=== PATIENT | female | born 1950 | race Caucasian/White ===

== ENCOUNTER 2023-04-09 12:37 | Outpatient (CLI) | payer MEDICARE, OTHER, SELFPAY ==
[2023-04-09 12:46] LABS: Add Urine Microscopic? NO; Charge for UA Resulting for Rev
[2023-04-09 12:50] LABS: Bilirubin Urine Neg (Negative); Blood Urine Neg (Negative); Glucose Urine UA Norm (Normal); Ketones Urine Negative (Negative); Leukocyte Esterase Urine Negative (Negative); Nitrate Urine Negative (Negative); Protein Urine Neg (Negative); Urine Appearance Clear (CLEAR); Urine Color Yellow (Yellow); Urobilinogen Urine Neg (Negative); pH Urine 6 (5-7)
== END 2023-04-09 12:38 | disposition home or self-care (01) ==
PROVIDERS: PCP Family Medicine; Visit Provider Family Medicine
DX: Z01.89 Encounter for other specified special examinations (principal)
CPT/HCPCS: 81003; 87086

== ENCOUNTER 2023-09-23 13:51 | Outpatient (CLI) | payer MEDICARE, OTHER, SELFPAY ==
[2023-09-23 15:22] LABS: Add Urine Microscopic? YES; Bacteria Urine 2+ /hpf; Bilirubin Urine Neg (Negative); Blood Urine Trace (Negative); Calcium Oxalate Crystals Urine 0-4 /hpf; Glucose Urine UA Norm (Normal); Ketones Urine Negative (Negative); Leukocyte Esterase Urine 2+ (Negative); Mucus Urine 1+ /hpf; Nitrate Urine Negative (Negative); Protein Urine Neg (Negative); RBC Urine 0-4 /hpf (0-2); Squamous Epithelial Cell Urine 0-4 /hpf (0-5); Urine Appearance Cloudy (CLEAR); Urine Color Yellow (Yellow); Urobilinogen Urine Norm (Negative); WBC Urine 15-25 /hpf (0-5); pH Urine 5 (5-7)
[2023-09-23 15:23] LABS: Add Urine Culture? Yes; Amorphous Sediment Urine 1+ /hpf
== END 2023-09-23 13:52 | disposition home or self-care (01) ==
PROVIDERS: PCP Family Medicine; Visit Provider Family Medicine
DX: Z01.89 Encounter for other specified special examinations (principal)
CPT/HCPCS: 81001; 87077; 87086; 87186

== ENCOUNTER 2024-02-10 10:46 | Inpatient (IN) | payer MEDICARE, OTHER, SELFPAY ==
[2024-02-10] VITALS (9 sets, daily range): BP systolic 134–194; BP diastolic 65–104; PULSE 78–96; RESP 16–18; TEMP 36.4–37.3; O2SAT 95–97; BMI 25.8
--- NOTE | 2024-02-10 10:51 | XR_ITS ---
WS: [id number] Right femur and thigh, AP and lateral views, 02/10/2024 Clinical Data: fall Comparison: None. Findings: There is a right femoral neck fracture. The femoral head remains within the acetabulum. The shaft of the femur is normal. The visualized right knee shows no abnormalities. XR/XR femur RT min 2V* [id number] Impression: Right femoral neck fracture.
--- NOTE | 2024-02-10 10:51 | XR_ITS ---
WS: [id number] Pelvis, AP right hip, 02/10/2024 Clinical Data: fall Comparison: None. Findings: There is a right femoral neck fracture. The femoral head remains within the acetabulum. The left hip is intact. Pubic symphysis and SI joints are normal. No pelvic fractures are seen. XR/XR pelvis 1-2V* [id number] Impression: Right femoral neck fracture.
--- NOTE | 2024-02-10 10:52 | W.ED.FALL ---
HPI - Fall General: Chief Complaint: Fall Stated Complaint: fall, hip pain Time Seen by Provider: 02/10/24 10:47 Source: EMS Mode of arrival: EMS Limitations: other (dementia) History of Present Illness: Patient was transported from long-term care facility. Apparently approximately 6:30 AM residence in the adjoining room her to fall and she was noted to be on the floor. Staff then were able to place her in a wheelchair but she has continued to refuse to ambulate complaining of pain in her right leg. She has longstanding dementia which limits any additional history taking. No other known injuries and she does not take any known antiplatelets or anticoagulant medications. MD complaint: fall Fall witnessed: no Related Data Home Medications Medication Instructions Recorded Confirmed acetaminophen 325 mg tablet 650 mg PO QID PRN Pain 02/10/24 02/10/24 melatonin 10 mg capsule 10 mg PO DAILY 02/10/24 02/10/24 memantine 5 mg tablet 5 mg PO DAILY 02/10/24 02/10/24 olanzapine 2.5 mg tablet 2.5 mg PO DAILY 02/10/24 02/10/24 sertraline 25 mg tablet 25 mg PO DAILY 02/10/24 02/10/24 Previous Rx's Medication Instructions Recorded trazodone 50 mg tablet 50 mg PO DAILY #30 tabs 07/02/22 lorazepam 0.5 mg tablet 0.5 mg PO BID PRN anxiety #60 tabs 08/31/23 Allergies Allergy/AdvReac Type Severity Reaction Status Date / Time No Known Allergies Allergy Verified 12/23/23 09:01 Review of Systems General: Reports: Other (Chronic dementia limits review of systems) Const: Denies: fever(s) or chills Musc: Reports: extremity pain Physical Exam Narrative: EXAM NARRATIVE: She appears to be uncomfortable when transferred from EMS stretcher to cot. She is alert and responds to her name. No obvious signs of trauma. Const: COMMON NORMALS: average body habitus and alert ORIENTATION/CONSCIOUSNESS: Yes awake HENMT: COMMON NORMALS: Normal nasal mucous membranes and turbinates present, moist oral mucous membranes and oropharynx normal NOSE: Normal nasal mucous membranes and turbinates present Eye: COMMON NORMALS: Equal, round and reactive pupils present and conjunctivae normal CONJUNCTIVA: Yes conjunctivae normal PUPIL: Yes Equal, round and reactive pupils present Neck/C-Spine: COMMON NORMALS: full ROM and supple Chest: COMMONS NORMALS: normal inspection of the chest and normal palpation of entire chest wall Resp: COMMON NORMALS: normal respiratory effort and No retractions Cardio: COMMON NORMALS: regular rate, regular rhythm, No murmurs present (Cardio) and Peripheral pulses 2+ throughout RATE: regular rate RHYTHM: regular rhythm PERIPHERAL PULSES: Peripheral pulses 2+ throughout GI: COMMON NORMALS: Normal to inspection, nondistended, normoactive bowel sounds present, Soft to palpation and non-tender PALPATION: Yes Soft to palpation : COMMON NORMALS: Yes no CVA tenderness BLADDER/KIDNEY EXAM: Yes no CVA tenderness Back/Pelvis: COMMON NORMALS: no CVA tenderness and thoracic and lumbar spine normal to inspection Extremity: NARRATIVE EXTREMITY EXAM: Has tenderness in her medial portion of her right upper leg with restriction in range of motion due to pain. No obvious deformity noted. She is has intact peripheral pulses and intact sensation to that distal right extremity. The pelvis is stable to AP and lateral compression. Neuro: COMMON NORMALS: moves all extremities (With exception the right lower extremity) and no focal motor deficits SENSORIUM/ORIENTATION: Yes alert Skin: COMMON NORMALS: no rashes or lesions noted, no wounds and turgor normal GENERAL SKIN EXAM: no rashes or lesions noted and turgor normal Course Reevaluation(s): Reevaluation #1: Repeat evaluation is negative for any new or otherwise changing findings and her clinical examination other than the right lower extremity discomfort and pain. Radiographs were reviewed. Time: 12:39 Consultations: Consultation #1: Discussed with Dr. Negron orthopedic information systems consultant who will plan on taking her to surgery tomorrow for hemiarthroplasty. He request admission to the hospitalist service with n.p.rory steward. Time: 12:40 Vital Signs: Vital signs: Vital Signs Temperature 98.1 F 02/10/24 11:03 Pulse Rate 78 02/10/24 11:45 Respiratory Rate 18 02/10/24 11:37 Blood Pressure 138/104 02/10/24 11:45 Pulse Oximetry 97 02/10/24 11:45 Oxygen Delivery Me thod Room Air 02/10/24 11:45 MDM - Fall Medical Decision Making This patient presented as noted in the history of present illness with limited history due to her dementia of having a fall. Her clinical exam did not reveal any evidence of other injury. She did have demonstrable tenderness with attempts of range of motion at the right hip. Radiographs of the hip and pelvis were obtained which revealed a surgical neck fracture. She is being admitted to hospitalist service with orthopedic consultation. Lab Data I reviewed the patient's lab results. Radiology Impressions Femur X-Ray 02/10/24 10:51 Impression: Right femoral neck fracture. Pelvis X-Ray 02/10/24 10:51 Impression: Right femoral neck fracture. All radiology interpretation(s) finalized by discharge Discharge Plan Discharge Patient Disposition: Admitted As Inpatient Clinical Impression: Fracture of hip, right, closed Qualifiers: Encounter type: initial encounter Qualified Code(s): S72.001A - Fracture of unspecified part of neck of right femur, initial encounter for closed fracture Alzheimer's dementia Qualifiers: Alzheimer's disease onset: late onset Dementia severity: moderate Dementia behavioral or psychological symptom: without behavioral, psychotic, or mood disturbance or anxiety Qualified Code(s): G30.1 - Alzheimer's disease with late onset Condition: Stable Coding Level of Care Code ED Quality Auditor for Ry Bailey
[2024-02-10] MEDS: morphine 4 mg/mL SDV 1 mL IVP (12:55)
[2024-02-10 13:27] LABS: Bilirubin Urine Negative (Negative); Blood Urine Negative (Negative); Glucose Urine UA Negative (Normal); Ketones Urine 1+ (Negative); Leukocyte Esterase Urine Negative (Negative); Nitrate Urine Positive (Negative); Protein Urine Trace (Negative); Specific Gravity, Urine 1.012 (1.005-1.030); Urine Appearance Cloudy (CLEAR); Urine Color Yellow (Yellow); pH Urine 7.5 (5-7)
[2024-02-10 13:30] LABS: Add Urine Microscopic? YES; Bacteria Urine EXCEEDS /hpf; Hyaline Casts Urine 2.46 /lpf; RBC Urine 0-2 /hpf (0-2); Squamous Epithelial Cell Urine 0-5 /hpf (0-5); WBC Urine 0-5 /hpf (0-5)
--- NOTE | 2024-02-10 13:35 | CT_ITS ---
WS: [id number] CT HEAD NONCONTRAST HISTORY: AMS TECHNIQUE: Contiguous axial imaging performed through the brain. Bone and soft tissue windows. Sagitt al and coronal reformats reviewed. All CT scans at [facility] use at least one of these dose optimization techniques: automated exposure control; mA and/or kV adjustment per patient size (includ es targeted exams where dose is matched to clinical indication); or iterative reconstruction. DLP: 1303.38 mGy.cm COMPARISON: None available. No acute intracranial hemorrhage, midline shift or mass effect. Moderate symmetric atrophy and small vessel disease. 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 Ventricles: Mildly dilated ventricles on the basis of atrophy. Paranasal sinuses: As visualized are clear. Mastoid air cells: Well pneumatized. Calvarium and scalp: Skull is intact with no soft tissue edema or swelling. CT/CT head wo con* [id number] IMPRESSION: 1. No acute intracranial hemorrhage or edema. 2. Moderate atrophy and small vessel disease. 3. Prior LEFT temporal lobe infarct with encephalomalacia.
[2024-02-10 13:38] LABS: Add Urine Culture? Yes
--- NOTE | 2024-02-10 13:59 | P.HP_ITS ---
Providers/Chief Complaint 2 Admitting Physician: Mk Aguilar MD Primary Care Provider: Sonny Robbins DO Chief Complaint: fall, hip pain History of Present Illness Francie Shane is a 73 year old female with history of dementia, no significant past medical history, resident of [facility] presented after unwitnessed falls. We are not sure for how long she was on the floor, in the ER she was diagnosed with hip fracture, daughter was concerned that she is not at her baseline requested CT head which was unremarkable After my interview patient seems very comfortable, she has expressive aphasia which as per the daughter is old, she has cognitive impairment, normally walks on her own without any assistance She normally answers in simple 3-4 word sentences No recent fever, hard to assess if she is experiencing signs and symptoms of UTI. Review of Systems 2 General: Reports: ROS unobtainable due to medical condition Const: Denies: fever(s) Eyes: Denies: change in vision Medications/Allergies Home Medications Medication Instructions Recorded Confirmed Last Taken Type trazodone 50 mg tablet 50 mg PO DAILY #30 tabs 07/02/22 02/10/24 02/09/24 Rx lorazepam 0.5 mg tablet 0.5 mg PO BID PRN anxiety #60 tabs 08/31/23 02/10/24 02/09/24 Rx acetaminophen 325 mg tablet 650 mg PO QID PRN Pain 02/10/24 02/10/24 Unknown History melatonin 10 mg capsule 10 mg PO DAILY 02/10/24 02/10/24 02/09/24 History memantine 5 mg tablet 5 mg PO DAILY 02/10/24 02/10/24 02/10/24 History olanzapine 2.5 mg tablet 2.5 mg PO DAILY 02/10/24 02/10/24 02/09/24 History sertraline 25 mg tablet 25 mg PO DAILY 02/10/24 02/10/24 02/10/24 History Allergies Allergy/AdvReac Type Severity Reaction Status Date / Time No Known Allergies Allergy Verified 12/23/23 09:01 PFSH Acute 2 PFSH: Medical History (Updated 02/10/24 @ 14:50 by Mk Aguilar MD) Expressive aphasia Insomnia Depression with anxiety Essential hypertension Lives in assisted living facility Establishing care with new doctor, encounter for Vitals/I&O/Wt Last Vital Signs Temp 98.1 F 02/10/24 11:03 Pulse 87 02/10/24 13:55 Resp 18 02/10/24 12:55 BP 184/97 02/10/24 13:55 Pulse Ox 95 02/10/24 13:55 O2 Del Method Room Air 02/10/24 13:16 Weight last 48 hrs Weight 72.575 kg Physical Exam 2 Narrative: Patient is awake and alert Able to answer simple questions I do not see any focal deficit Right leg is rotated outwards and short No neurovascular compromise Lung clear to auscultation S1, S2 Abdomen with positive bowel sounds Urinary Catheter Management: Guillaume: Cath Placed During This Visit: yes Urinary Catheter Date of Insertion: 02/10/24 Urinary Catheter Time of Insertion: 13:18 Data 02/10/24 13:43 02/10/24 13:43 A&P Assessment and plan (1) Fracture of hip, right, closed: Qualifiers: Encounter type: initial encounter Qualified Code(s): S72.001A - Fracture of unspecified part of neck of right femur, initial encounter for closed fracture (2) Alzheimer's dementia: Qualifiers: Alzheimer's disease onset: late onset Dementia severity: moderate D ementia behavioral or psychological symptom: without behavioral, psychotic, or mood disturbance or anxiety Qualified Code(s): G30.1 - Alzheimer's disease with late onset; F02.B0 - Dementia in other diseases classified elsewhere, moderate, without behavioral disturbance, psychotic disturbance, mood disturbance, and anxiety (3) Expressive aphasia: Plan Unwitnessed fall Going for hip surgery by tomorrow Not on any anticoagulating agent Patient has underlying dementia Daughter and son has medical DPOA, she is full code for now Guillaume catheter has been placed in the ER For hypertension can use hydralazine on as-needed basis, avoid lisinopril Patient seems to have chronic expressive aphasia with underlying dementia DVT prophylaxis: SCDs Cloudy urine: I will give her a dose of ceftriaxone Currently doing well on room air Patient not a good historian, information taken from the daughter who is at the bedside Patient will need half-way placement for rehab Attestations 2 Medical Necessity Statement*: Anticipating more than 2 midnights Diagnoses Fracture of hip, right, closed S72.001A Encounter type: initial encounter Moderate late onset Alzheimer's dementia without behavioral disturbance, psychotic disturbance, mood disturbance, or anxiety G30.1; F02.B0 Alzheimer's disease onset: late onset Dementia severity: moderate Dementia behavioral or psychological symptom: without behavioral, psychotic, or mood disturbance or anxiety Expressive aphasia R47.01
[2024-02-10 14:03] LABS: Basophils % 0.1 %; Eosinophils % 0.1 %; Hematocrit 40.1 % (36-47); Lymphocytes # 0.4 10^3/uL (0.8-4.8); Mean Corpuscular HGB Conc 32.9 g/dL (30-55); Mean Corpuscular Hemoglobin 30.8 pg (27-33); Mean Corpuscular Volume 93.5 fl (85-98); Mean Platelet Volume 9.8 fL (7.4-10.4); Monocytes # 0.6 10^3/uL (0.2-0.9); Monocytes % 4.4 %; Neutrophils # 13.07 10^3/uL (1.8-7.7); Nucleated Red Blood Cells % 0 %; Platelet Count 156 10^3/cmm (157-399); Red Blood Count 4.29 10^6/uL (3.85-5.65); Red Cell Distribution Width 11.6 % (12.1-15.1); White Blood Count 14.21 10^3/uL (3.29-11.43)
[2024-02-10 14:32] LABS: Alanine Aminotransferase 21 U/L (0-33); Albumin Level 4.1 g/dL (3.5-5.2); Alkaline Phosphatase 82 U/L (35-105); Aspartate Amino Transferase 23 U/L (0-32); Blood Urea Nitrogen 17 mg/dL (8-23); Calcium 8.9 mg/dL (8.5-10.5); Carbon Dioxide 27 mmol/L (22-29); Chloride 101 mmol/L (98-107); Globulin 2.9 g/dL (1.3-4.6); Glucose 125 mg/dL (65-115); Osmolality Calculated 289 mOsm/kg (285-295); Sodium 138 mmol/L (136-145); Total Bilirubin 0.6 mg/dL (0.15-1.2)
[2024-02-10 14:35] LABS: Anion Gap 13.3 (5-19); Potassium 3.3 mmol/L (3.5-5.1)
[2024-02-10 15:08] LABS: Thyroid Stimulating Hormone 1.19 uIU/mL (0.27-4.20); Vitamin B12 1023 pg/mL (232-1245)
[2024-02-10 15:11] LABS: D Dimer > 20.00 ug/mLFEU (0-0.59)
[2024-02-10 15:21] LABS: Creatine Phosphokinase 113 U/L (26-192)
[2024-02-10] MEDS: enoxaparin 40 mg/0.4 mL Syringe SUBCUT (16:27)
[2024-02-10] MEDS: hyDRALAzine 20 mg/mL INJ 1 mL 5 MG IVP (16:28)
--- NOTE | 2024-02-10 16:51 | USR_ITS ---
PROCEDURE INFORMATION: Exam: US Duplex Lower Extremity Veins, Bilateral Exam date and time: 02/10/2024 5:42 PM Age: 73 years old Clinical indication: Screening exam; Elevated d-dimer; Additional info: Elevated d dimer TECHNIQUE: Imaging protocol: Real-time duplex ultrasound of the bilateral extremities with 2-D ochn scale, color Doppler flow and spectral waveform analysis including responses to compression and other maneuvers (when performed) with image documentation. Complete exam focused on the lower extremity veins. COMPARISON: CR XR femur RT min 2V* [id number] 02/10/2024 11:36 AM FINDINGS: Right deep veins: Unremarkable. The common femoral, femoral, proximal profunda femoral, popliteal, posterior tibial and peroneal veins are patent without thrombus. Normal Doppler waveforms. Normal compressibility and/or augmentation response. Left deep veins: Unremarkable. The common femoral, femoral, proximal profunda femoral, popliteal, posterior tibial and peroneal veins are patent without thrombus. Normal Doppler waveforms. Normal compressibility and/or augmentation response. Superficial veins: Greater saphenous veins at the saphenofemoral junctions are patent bilaterally without thrombus. Soft tissues: Unremarkable. US/[place] [id number] IMPRESSION: No sonographic evidence of deep venous thrombosis.
--- NOTE | 2024-02-10 16:52 | CTR_ITS ---
PROCEDURE INFORMATION: Exam: CTA Chest With Contrast Exam date and time: 02/11/2024 1:03 AM Age: 73 years old Clinical indication: Other: Elevated d dimer TECHNIQUE: Imaging protocol: Computed tomographic angiography of the chest with contrast. Exam focused on the arteries. 3D rendering (Not supervised by radiologist): MIP and/or 3D reconstructed images were created by the technologist. Radiation optimization: All CT scans at this facility use at least one of these dose optimization techniques: automated exposure control; mA and/or kV adjustment per patient size (includes targeted exams where dose is matched to clinical indication); or iterative reconstruction. Contrast material: OMNI 350; Contrast volume: 100 ml; Contrast route: INTRAVENOUS (IV); COMPARISON: No relevant prior studies available. RADIATION DOSE METRICS: Total DLP (mGy-cm): 787.2 FINDINGS: Pulmonary arteries: Normal. No pulmonary emboli. Aorta: Mild aortic atherosclerosis. Lungs: Mild bibasilar atelectasis. Pleural spaces: Unremarkable. No pneumothorax. No pleural effusion. Heart: Aortic and mitral valve calcifications. Lymph nodes: Unremarkable. No enlarged lymph nodes. Bones/joints: Unremarkable. No acute fracture. Soft tissues: Unremarkable. CT/CT angio chest PE protcl [id number] IMPRESSION: No pulmonary embolus.
[2024-02-10] MEDS: metoprolol tartrate 25 mg Tablet PO (20:10)
[2024-02-10] MEDS: OLANZapine 5 mg TABLET 2.5 MG PO (20:11)
--- NOTE | 2024-02-10 23:03 | P.CONIM_ITS ---
Providers/Reason For Consult 2 Consulting Physician/Specialty*: Flakito Negron DO Reason for Consult*: Right hip femoral neck fracture Requesting Physician: Dr. Madden Attending Physician: Mk Aguilar MD Primary Care Provider: Sonny Robbins DO History of Present Illness History of Present Illness Francie Shane is a 73 year old female presented emergency department after unwitnessed fall landing onto the right hip. Patient has dementia unable to obtain HPI from patient but daughter is at bedside patient has history of dementia and is a resident at [facility]. She has deformity to right lower extremity. She is brought to emergency department found to have a right femoral neck fracture internal medicine is admitted patient is primary and orthopedics was consulted for evaluation and treatment recommendations. Baseline according to daughter she does ambulate normally on her own without any assistance. Review of Systems 2 General: Reports: ROS unobtainable due to mental status Medications/Allergies Home Medications Medication Instructions Recorded Confirmed Last Taken Type trazodone 50 mg tablet 50 mg PO DAILY #30 tabs 07/02/22 02/10/24 02/09/24 Rx lorazepam 0.5 mg tablet 0.5 mg PO BID PRN anxiety #60 tabs 08/31/23 02/10/24 02/09/24 Rx acetaminophen 325 mg tablet 650 mg PO QID PRN Pain 02/10/24 02/10/24 Unknown History melatonin 10 mg capsule 10 mg PO DAILY 02/10/24 02/10/24 02/09/24 History memantine 5 mg tablet 5 mg PO DAILY 02/10/24 02/10/24 02/10/24 History olanzapine 2.5 mg tablet 2.5 mg PO DAILY 02/10/24 02/10/24 02/09/24 History sertraline 25 mg tablet 25 mg PO DAILY 02/10/24 02/10/24 02/10/24 History Allergies Allergy/AdvReac Type Severity Reaction Status Date / Time No Known Allergies Allergy Verified 12/23/23 09:01 Current Medications Generic Name Dose Route Start Last Admin Trade Name Freq PRN Reason Stop Dose Admin Enoxaparin Sodium 40 mg 02/10/24 14:45 02/10/24 16:27 Enoxaparin 40 Mg/0.4 Ml Syringe SUBCUT 40 mg Q24H NINA Administration Hydralazine HCl 5 mg 02/10/24 14:16 02/10/24 16:28 Hydralazine 20 Mg/Ml Inj 1 Ml IVP 5 mg Q4H PRN Administration bp>180/100 Metoprolol Tartrate 25 mg 02/10/24 21:00 02/10/24 20:10 Metoprolol Tartrate 25 Mg Tablet PO 25 mg BID@0900,2100 NINA Administration Olanzapine 2.5 mg 02/10/24 21:00 02/10/24 20:11 Olanzapine 5 Mg Tablet PO 2.5 mg BEDTIME NINA Administration PFSH Acute 2 PFSH: Medical History (Updated 02/10/24 @ 14:50 by Mk Aguilar MD) Expressive aphasia Insomnia Depression with anxiety Essential hypertension Lives in assisted living facility Establishing care with new doctor, encounter for Vitals/I&O/Wt Last Vital Signs Temp 98.9 F 02/10/24 20:00 Pulse 96 02/10/24 20:00 Resp 17 02/10/24 20:00 BP 141/65 02/10/24 20:00 Pulse Ox 96 02/10/24 20:00 O2 Del Method Room Air 02/10/24 20:00 02/10/24 02/10/24 02/11/24 14:59 22:59 06:59 Intake Total 240 / 240 Output Total 1000 / 1000 Balance -760 / -760 Weight last 48 hrs Weight 160 lb Weight 160 lb Physical Exam 2 Narrative: Patient is able to follow simple exams Examination right lower extremity: Examination of the right lower extremity demonstrates patient has tenderness palpation of the right?hip?as well as the right lower extremity is shortened and externally rotated pt has positive logroll on?examination, unable to perform Stinchfield's secondary to pain and discomfort.? Patient is able to wiggle toes plantarflex and dorsiflex ankle sensations intact to light touch distally.? Distal pulses are palpable right lower extremity is warm and well-perfused.? Mild swelling noted about the right?hip.?? Secondary survey?examination unremarkable For any acute pathology to the bilateral upper extremities or contralateral lower extremity.? pt? has no tenderness to palpation to the bilateral upper extremities joints and no noticeable deformities.? ?gross motor and sensory is intact to the bilateral upper extremities.? Contralateral lower extremity has tenderness to the?hip?knee or ankle with no appreciable deformities and is able to plantarflex and dorsiflex ankle sensations intact to light touch distally as well as wiggle toes.? Distal pulses palpable.? Negative pelvic compression test, no tenderness palpation of the spine. Urinary Catheter Management: Guillaume: Cath Placed During This Visit: yes Reason for Continuing Indwelling Catheter: Perioperative Use in Selected Surgeries Urinary Catheter Date of Insertion: 02/10/24 Urinary Catheter Time of Insertion: 13:18 Data 02/11/24 04:20 02/11/24 04:20 Xray Ortho: Radiologist's impression: Ordering Provider/Ordering MD: Al Madden DO Date of Service: 02/10/24 Procedure(s): XR pelvis 1-2V* 91003 Accession Number(s): [id number] Report Number: [id number] WS: [id number] Pelvis, AP right hip, 02/10/2024 Clinical Data: fall Comparison: None. Findings: There is a right femoral neck fracture. The femoral head remains within the acetabulum. The left hip is intact. Pubic symphysis and SI joints are normal. No pelvic fractures are seen. XR/XR pelvis 1-2V* 32200 Impression: Right femoral neck fracture. Ordering Provider/Ordering MD: Al Madden DO Date of Service: 02/10/24 Procedure(s): XR femur RT min 2V* 39108 Accession Number(s): [id number] Report Number: [id number] WS: [id number] Right femur and thigh, AP and lateral views, 02/10/2024 Clinical Data: fall Comparison: None. Findings: There is a right femoral neck fracture. The femoral head remains within the acetabulum. The shaft of the femur is normal. The visualized right knee shows no abnormalities. XR/XR femur RT min 2V* [id number] Impression: Right femoral neck fracture. A&P Assessment and plan (1) Fracture of hip, right, closed: Qualifiers: Encounter type: initial encounter Qualified Code(s): S72.001A - Fracture of unspecified part of neck of right femur, initial encounter for closed fracture Plan X-rays reviewed Internal medicine as primary Orthopedics consulted Nonweightbearing right lower extremity Ice as needed for pain and swelling Pain control Hold a.m. anticoagulation May have a diet today, patient should be n.p.o. at midnight Add-on tomorrow for right hip hemiarthroplasty MDM: Patient is a 73-year-old female with dementia unable to obtain history from patient however her daughter is at bedside today. Patient had a unwitnessed fall and presented emergency department she is from a memory care unit at [facility] she does ambulate without a walker at baseline she presents with a displaced hip femoral neck fracture. At this point in time we talked about her treatment options with the patient's daughter. We talked about nonoperative and operative invention given the significant displacement as well as her baseline ambulation status would recommend surgical intervention for right hip hemiarthroplasty with goals for earlier mobilization and pain control we talked about the ins and outs of procedure the risk benefits complication alternatives with daughter. Risk of surgery include but not limited to make a better make it worse injury nerves vessels or tendons, leg length discrepancies, instability, infection, periprosthetic fractures. Understanding risk of surgery, patient's daughter elects to proceed with surgical intervention. Plan will be to proceed with a right hip hemiarthroplasty tomorrow. All questions answered. Coding Level of Care Code Acute Code for [facility] Fwd Diagnoses Fracture of hip, right, closed S72.001A Encounter type: initial encounter
[2024-02-11] VITALS (19 sets, daily range): BP systolic 121–206; BP diastolic 64–89; PULSE 69–99; RESP 13–24; TEMP 36.4–37.6; O2SAT 91–98
[2024-02-11] MEDS: iohexol 350 mg/mL 500 mL Btl (per mL) IV (01:27)
[2024-02-11] MEDS: morphine IR 15 mg Tablet PO ×3 (01:34→20:38)
[2024-02-11 04:53] LABS: Basophils % 0.1 %; Eosinophils # 0.1 10^3/uL (0.0-0.8); Eosinophils % 0.6 %; Hematocrit 36.6 % (36-47); Lymphocytes # 1.3 10^3/uL (0.8-4.8); Lymphocytes % 11.6 %; Mean Corpuscular HGB Conc 33.6 g/dL (30-55); Mean Corpuscular Volume 92.2 fl (85-98); Mean Platelet Volume 9.9 fL (7.4-10.4); Monocytes # 0.6 10^3/uL (0.2-0.9); Monocytes % 5.5 %; Neutrophils # 8.96 10^3/uL (1.8-7.7); Neutrophils % 81.7 %; Nucleated Red Blood Cells % 0 %; Platelet Count 160 10^3/cmm (157-399); Red Blood Count 3.97 10^6/uL (3.85-5.65); Red Cell Distribution Width 11.6 % (12.1-15.1); White Blood Count 10.96 10^3/uL (3.29-11.43)
[2024-02-11 05:19] LABS: Anion Gap 12.7 (5-19); Blood Urea Nitrogen 18 mg/dL (8-23); Calcium 8.7 mg/dL (8.5-10.5); Carbon Dioxide 27 mmol/L (22-29); Chloride 105 mmol/L (98-107); Glucose 127 mg/dL (65-115); Osmolality Calculated 295 mOsm/kg (285-295); Potassium 3.7 mmol/L (3.5-5.1); Sodium 141 mmol/L (136-145)
[2024-02-11] MEDS: metoprolol tartrate 25 mg Tablet PO ×2 (09:19→20:38)
--- NOTE | 2024-02-11 09:27 | P.PN_ITS ---
Subjective 2 Subjective: Patient suffered from sundowning, required medications to keep her calm Requiring one-to-one supervision Plan for surgery today Likely will need SNF Vitals/I&O/Wt Last Vital Signs Temp 98.2 F 02/11/24 07:30 Pulse 78 02/11/24 08:01 Resp 16 02/11/24 08:01 BP 160/72 02/11/24 07:30 Pulse Ox 94 02/11/24 08:01 O2 Del Method Room Air 02/11/24 08:01 02/10/24 02/11/24 02/11/24 22:59 06:59 14:59 Intake Total 240 / 240 Output Total 1250 / 1250 150 / 1400 Balance -1010 / -1010 -150 / -1160 Weight last 48 hrs Weight 70.534 kg Weight 72.575 kg Weight 72.575 kg Physical Exam 2 Narrative: Resting comfortably Patient is in deep sleep Currently hemodynamically stable with hypertension Currently on room air Abdomen soft Euvolemic Guillaume catheter in place Daughter at the bedside One-to-one supervision Urinary Catheter Management: Guillaume: Cath Placed During This Visit: yes Reason for Continuing Indwelling Catheter: Perioperative Use in Selected Surgeries Urinary Catheter Date of Insertion: 02/10/24 Urinary Catheter Time of Insertion: 13:18 Data 02/11/24 04:20 02/11/24 04:20 A&P Assessment and plan (1) Fracture of hip, right, closed: Qualifiers: Encounter type: initial encounter Qualified Code(s): S72.001A - Fracture of unspecified part of neck of right femur, initial encounter for closed fracture (2) Alzheimer's dementia: Qualifiers: Alzheimer's disease onset: late onset Dementia severity: moderate D ementia behavioral or psychological symptom: without behavioral, psychotic, or mood disturbance or anxiety Qualified Code(s): G30.1 - Alzheimer's disease with late onset; F02.B0 - Dementia in other diseases classified elsewhere, moderate, without behavioral disturbance, psychotic disturbance, mood disturbance, and anxiety (3) Expressive aphasia: Plan Unwitnessed fall Expressive aphasia Sundowning/delirium We can keep her antipsychotic olanzapine for delirium every night however this is her home regimen Discontinue Guillaume catheter once she is done with the surgery Continue memantine and olanzapine Plan for surgical intervention today Most likely will need SNF She may resume her diet after surgery She has expressive aphasia CT head showing chronic infarct D-dimer was above 20, CTA chest and venous Doppler did not show any sign of DVT or PE Attestations 2 Medical Necessity Statement*: Continue medical management Diagnoses Fracture of hip, right, closed S72.001A Encounter type: initial encounter Moderate late onset Alzheimer's dementia without behavioral disturbance, psychotic disturbance, mood disturbance, or anxiety G30.1; F02.B0 Alzheimer's disease onset: late onset Dementia severity: moderate Dementia behavioral or psychological symptom: without behavioral, psychotic, or mood disturbance or anxiety Expressive aphasia R47.01
--- NOTE | 2024-02-11 10:02 | PC.SOCIAL ---
IMM Update pg 2 of IMM Updated and reviewed w/ patients daughter who is @ bedside. Copy signed by daughter. Copy dated, initialed and placed in chart.
[2024-02-11] MEDS: acetaminophen 1,000 MG/100 ML PIGGYBACK 400 MG IV (13:51)
[2024-02-11] MEDS: sodium chloride 0.9% 1,000 ML 30 ML IV (13:51)
[2024-02-11] MEDS: ketorolac 30 mg/mL INJ IVP (13:56)
--- NOTE | 2024-02-11 14:17 | ANES.PREANE2 ---
Pre-Anesthetic Assessment Height/Weight: Height 5 ft 6 in Weight 155 lb 8 oz Temp Pulse Resp BP Pulse Ox O2 Del Method 98.7 F 73 18 171/79 94 Room Air 02/11/24 13:38 02/11/24 13:38 02/11/24 13:38 02/11/24 13:38 02/11/24 13:38 02/11/24 13:38 Preop Diagnosis: Right hip displaced femoral neck fracture Operation Date: 02/11/24 14:20 Proposed Procedures p Hemiarthroplasty Hip(Right) - Flakito Jamil, DO Was Beta Jeny taken within 24 hours: N/A Was Clonidine taken within 24 hours: N/A Social No alcohol and No tobacco Exam alert, oriented x 3, clear to auscultation bilaterally and regular rate & rhythm Airway Submandibular: within normal limits Cervical ROM: within normal limits Mallampati: Class III Dentition: full Comments: Comments: Denies any loose teeth Anesthetic Plan ASA status: 3 Anesthesia: General Other: Patient comes from nursing facility with hip fracture No prior issues with anesthesia NPO status unknown other than nothing since yesterday sometime History of Alzheimer's disease in memory unit, pleasantly demented Labs reviewed 02/11/2024 acceptable for procedure Hemoglobin 12.3 Type and screen ordered Plan for general anesthesia Medications/Allergies Home Medications Medication Instructions Recorded Confirmed Last Taken Type trazodone 50 mg tablet 50 mg PO DAILY #30 tabs 07/02/22 02/10/24 02/09/24 Rx lorazepam 0.5 mg tablet 0.5 mg PO BID PRN anxiety #60 tabs 08/31/23 02/10/24 02/09/24 Rx acetaminophen 325 mg tablet 650 mg PO QID PRN Pain 02/10/24 02/10/24 Unknown History melatonin 10 mg capsule 10 mg PO DAILY 02/10/24 02/10/24 02/09/24 History memantine 5 mg tablet 5 mg PO DAILY 02/10/24 02/10/24 02/10/24 History olanzapine 2.5 mg tablet 2.5 mg PO DAILY 02/10/24 02/10/24 02/09/24 History sertraline 25 mg tablet 25 mg PO DAILY 02/10/24 02/10/24 02/10/24 History Allergies Allergy/AdvReac Type Severity Reaction Status Date / Time No Known Allergies Allergy Verified 12/23/23 09:01 Current Medications Generic Name Dose Route Start Last Admin Trade Name Freq PRN Reason Stop Dose Admin Enoxaparin Sodium 40 mg 02/10/24 14:45 02/10/24 16:27 Enoxaparin 40 Mg/0.4 Ml Syringe SUBCUT 40 mg Q24H NINA Administration Hydralazine HCl 5 mg 02/10/24 14:16 02/10/24 16:28 Hydralazine 20 Mg/Ml Inj 1 Ml IVP 5 mg Q4H PRN Administration bp>180/100 Sodium Chloride 1,000 mls @ 30 mls/hr 02/11/24 13:45 02/11/24 13:51 Sodium Chloride 0.9% IV 30 mls/hr .Q24H NINA Administration Metoprolol Tartrate 25 mg 02/10/24 21:00 02/11/24 09:19 Metoprolol Tartrate 25 Mg Tablet PO 25 mg BID@0900,2100 NINA Administration Morphine Sulfate 15 mg 02/10/24 14:16 02/11/24 11:51 Morphine Ir 15 Mg Tablet PO 15 mg Q6H PRN Administration MODERATE PAIN Olanzapine 2.5 mg 02/10/24 21:00 02/10/24 20:11 Olanzapine 5 Mg Tablet PO 2.5 mg BEDTIME NINA Administration Thiamine Mononitrate 100 mg 02/11/24 09:00 02/11/24 09:26 Thiamine 100 Mg Tablet PO Not Given DAILY NINA PFSH Anesthesia Medical History (Updated 02/10/24 @ 14:50 by Mk Aguilar MD) Expressive aphasia Insomnia Depression with anxiety Essential hypertension Lives in assisted living facility Establishing care with new doctor, encounter for Data Anesthesia 02/11/24 04:20 02/11/24 04:20 Short CBC 02/10/24 02/11/24 Range/Units 13:43 04:20 WBC 14.21 H 10.96 (3.29-11.43) 10^3/uL Hgb 13.20 12.30 (11.27-16.99) g/dL Hct 40.1 36.6 (36-47) % MCV 93.5 92.2 (85-98) fl Plt Count 156 L 160 (157-399) 10^3/cmm Neut % (Auto) 92.0 81.7 % Neut # (Auto) 13.07 H 8.96 H (1.8-7.7) 10^3/uL BMP 02/10/24 02/11/24 13:43 04:20 Sodium 138 141 Potassium 3.3 L 3.7 Chloride 101 105 Carbon Dioxide 27 27 BUN 17 18 Creatinine 0.5 0.5 Glucose 125 H 127 H Calcium 8.9 8.7 Cardiac Enzymes 02/10/24 Range/Units 13:43 Creatine Kinase 113 (26-192) U/L Liver Function 02/10/24 Range/Units 13:43 Total Bilirubin 0.6 (0.15-1.2) mg/dL AST 23 (0-32) U/L ALT 21 (0-33) U/L Alkaline Phosphatase 82 (35-105) U/L Albumin 4.1 (3.5-5.2) g/dL Urine 02/10/24 Range/Units 13:16 Urine Color Yellow (Yellow) Urine Appearance Cloudy A (CLEAR) Urine pH 7.5 (5-7) Ur Specific [place] 1.012 (1.005-1.030) Urine Protein Trace A (Negative) Urine Glucose (UA) Negative (Normal) Urine Ketones 1+ H (Negative) Urine Nitrate Positive A (Negative) Urine Bilirubin Negative (Negative) Ur Leukocyte Esterase Negative (Negative) Urine RBC 0-2 (0-2) /hpf Urine WBC 0-5 (0-5) /hpf Blood Bank 02/11/24 04:20 Blood Type A Negative Rho(D) Type Rh negative Antibody Screen Negative Coags 02/10/24 13:43 D-Dimer > 20.00 H Microbiology 02/10/24 13:16 Urine Culture - Preliminary Urine,Clean Catch Gram Negative Rods Cardiac Studies: No Data to Display
--- NOTE | 2024-02-11 14:45 | W.PM.OPSUD ---
Surgery/Procedure H&P Update DATE OF PROCEDURE: February 11, 2024 DATE H&P PERFORMED: 02/10/24 H&P UPDATE INFORMATION: I have reviewed H&P completed within last 30 days, I have examined patient prior to procedure and No changes to prior documentation PREOP DIAGNOSIS: Right hip displaced femoral neck fracture PRIMARY INDICATION FOR PROCEDURE: Right hip displaced femoral neck fracture PLANNED PROCEDURE: Operation Date: 02/11/24 14:20 Proposed Procedures p Hemiarthroplasty Hip(Right) - Flakito Negron DO
[2024-02-11] MEDS: ceFAZolin 2,000 mg SDV 2000 MG IVP ×2 (14:58→22:54)
[2024-02-11] MEDS: tranexamic acid 1,000 mg/10mL SDV 1000 MG IV (15:29)
[2024-02-11] MEDS: vancomycin 1,000 MG SDV 1000 MG XX (16:50)
--- NOTE | 2024-02-11 17:28 | P.BOP_ITS ---
Date of Procedure: [February 11, 2024] Surgeon: [Dr. Negron DO] Second Facing Baster(s): [Gil Negron PA-C] Procedure(s) performed: [Right hip hemiarthroplasty] Findings of the procedure(s): [Right hip displaced femoral neck fracture. Procedure went well and as planned.] Estimated blood loss: [150 ml] Specimen(s) removed: [Femoral head] Post-operative diagnosis: [Right hip displaced femoral neck fracture]
--- NOTE | 2024-02-11 17:31 | PM.PACU ---
PACU note Narrative: Patient is a 73-year-old female just underwent a right hip hemiarthroplasty. Pt transferred to PACU in stable condition. Dressing is dry. pt is awake and confused. Exam limited due to patient is dementia. Unable to further assess motor and sensory of right leg. Distal pulses are palpable toes are warm and well-perfused. Cap refill is normal and under 2 seconds. Pain is controlled. Exam: awake Disposition: back to floor
--- NOTE | 2024-02-11 17:36 | XRR_ITS ---
PROCEDURE INFORMATION: Exam: XR Right Hip Exam date and time: 02/11/2024 5:49 PM Age: 73 years old Clinical indication: Hip pain; Right hip; Patient HX: Post op RT hemiarthroplasty; Additional info: R hip nena TECHNIQUE: Imaging protocol: Radiologic exam of the right hip. Views: 1 view hip with pelvis when performed. COMPARISON: CR XR pelvis 1-2V* [id number] 02/10/2024 11:36 AM FINDINGS: Bones/joints: Total right hip arthroplasty in anatomic alignment. Mild osseous demineralization. No fracture or dislocation. Soft tissues: Postoperative changes in the subcutaneous tissues including subcutaneous gas and skin ghassan. XR/XR hip RT 2-3V wo/w pel* [id number] IMPRESSION: Total right hip arthroplasty in anatomic alignment.
--- NOTE | 2024-02-11 17:44 | PC.NURSE ---
1744- pt arrived to pacu at 1724 with staff at side - confused and pulling at monitor leads, [place]wood and IV - baseline dementia noted - JAYESH Humphrey noted vital signs and ok'd due to pts constant movement and pulling at leads and such
--- NOTE | 2024-02-11 17:44 | PM.OP ---
Operative Report Date of procedure: February 11, 2024 Surgeon: Flakito Negron DO Environmental [employer] Program Director: Gil Negron PA-C: PA was necessary for assistance in this case with leg positioning, hip reductions, retraction and protection of neurovascular structures as well as assistance in implantation wound closure and dressing application. Procedure: Preoperative diagnosis: Right hip displaced femoral neck fracture Post-op diagnosis: Same Procedure done: Right?hip?hemiarthroplasty, cemented (posterior approach) Implants: Irving Accolade C 132 degree femoral stem size 3 Bipolar head 50 mm Femoral head +8 mm offset 8mm distal cement spacer Surgeon: Flakito Negron DO Estimated blood loss: 150 mL IV fluids: See anesthesia record Urine output: See anesthesia record Complications: None Findings: See operative report Condition: stable Disposition: floor Brief History: Patient was brought to the emergency department and subsequently admitted after fall.? Patient sustained a right displaced femoral neck fracture.? Patient was subsequently admitted by the hospitalist team for medical management and medical optimization and the orthopedic surgery team was consulted for evaluation and treatment recommendations.? At that point time discussed with patients daughter treatment options.? We talked about nonoperative versus operative intervention talked about the risk benefits complication alternatives to surgical nonsurgical treatment options.? Risks of surgery were discussed and she understands and agrees to proceed with procedure.? At this point time would recommend a right?hip?hemiarthroplasty.? This will offer patient pain control as well as early weightbearing.? Patient was medically optimized and cleared by the primary team.? Patient's daughter understands risk benefits complication alternatives with surgical nonsurgical treatment options.? At this point time patient's daughter elects to proceed with right?hip?hemiarthroplasty and consent was obtained in the preoperative holding area..? All questions answered.? Patient understands agrees with current plan.? All questions answered. Procedure: Patient seen evaluated the preoperative holding area.? Consent was reviewed and signed with patient.? ?Pt was seen evaluated by the anesthesia department.? Once cleared for surgery patient patient was taken back to the operative suite.? Patient was then transported onto the OR table.? pt underwent anesthesia per the anesthesia department.? Once appropriately anesthetized patient was then positioned in lateral decubitus position with the right?hip?up.? Patient was placed on a pegboard appropriately secured to the bed all bony prominences well-padded.? Next the right lower extremity was then prepped and draped in sterile orthopedic fashion.? Final timeout performed.? Patient received appropriate preoperative antibiotics. A standard posterolateral approach was then made over the lateral aspect of the?hip.? Sharp scalpel incision was made through skin and subcutaneous tissue I then utilized a Mora elevator to mobilize over the fascia.? The fascia was then split longitudinally with electrocautery.? Next a bursectomy was then performed.? I then placed Hohmann underneath the abductors.? The?hip?was placed under tension with internal rotation.? I then utilizing electrocautery performed a full-thickness release of the short external rotators and capsule in 1 full thick sleeve for lateral repair.? This was then taken down to the lesser trochanter.? Immediately on capsulotomy hematoma was noticed and displaced femoral neck fracture appreciated.? I then placed a Hohmann above and below the neck.? I then utilized an oscillating saw to freshen the cut this was roughly half of a fingerbreadth above the lesser as patient did fracture slightly lower on the neck.? Once this was performed this access was removed with rongeur.? ?I then utilized a corkscrew to remove the head.? This was then subsequently sized and measured to be a 50 mm head size.? I then thoroughly irrigated the acetabulum.? A Hohmann was placed anteriorly and thorough inspection of the acetabulum no significant arthritic changes were noted.? I then utilized a rongeur and Bovie to remove the pulvinar.? Once this was performed I then subsequently took my trial 50 mm head and trialed this which had excellent fit and appropriate suction fit noted.? This was then subsequently removed. Once this was performed I irrigated the socket and then turned my attention towards the femoral preparation.? I utilized Bovie and rongeur to remove the soft tissue off of the saddle.? Once this was done a box osteotome followed by a canal finder and? lateralizing rattail rasp was used to appropriately lateralized in the canal.? Next I then subsequently broached to a size 3 Accolade C. Irving femoral stem which the size 3 was slightly smaller and the size 4 was too big I was unable to fully trial with just the broach stem in place due to the patient's canal and fixation as a result plan was to cement this flush with the calcar and are cut and then subsequently trial. The 3 sent flush with the calcar and was within the appropriate length and I felt we could add on as the tip of the trochanter was near the center of the neck stem. I then subsequently proceeded with standard cementation technique.? Cement was mixed on the back table the final implant was opened and appropriately measurement on distal cement plug to accommodate the cement mantle and femoral stem.? This was set and impacted in place to appropriate depth.? Next I utilized the cement brush thoroughly irrigated the canal and then dry the canal tampon.? Once cement was appropriately mixed and ready for cementation informed anesthesia and they optimize patient's oxygenation cement was then impacted using cement gun and then was subsequently pressurized.?? The femoral stem size 3 was then impacted in place with appropriate anteversion and held into place and all excess cement was removed and allowed to cure once cured I then trialed a standard size head which at that point there was still short on leg lengths. As a result I subsequently trialed up to a +8 and was found to have appropriate excellent leg lengths as well as appropriate shuck, and excellent stability in all planes of motion with no evidence of instability.? At this point this was determined to being my final femoral head size.? This was subsequently dislocated the trial head was then removed the final implant of bipolar head 50 mm with a +8 mm offset was then opened.? The trunnion was then cleaned and dried and this was impacted in place with excellent fixation.? I then reduced the?hip?this had excellent stability and appropriate leg lengths.? The wound bed was then thoroughly irrigated.? I then utilizing #5 Ethibond suture performed my repair of the capsule and short external rotators through bone tunnels.? ?Wound bed was then thoroughly irrigated,1 gram vanco powder placed in wound bed.? IT band was closed with strata fix suture and the deep subcutaneous and subcutaneous layers were closed with 0 strata fix and 2-0 strata fix.? Skin was then closed reapproximated with ghassan.? Silverlon dressing applied.? Patient placed in abduction pillow posterior?hip?precautions.? pt? was awakened from anesthesia and taken to PACU in stable condition Disposition: Patient taken to PACU in stable condition will receive appropriate discharge directions as well as pain medication DVT prophylaxis postoperatively.? Patient? will return to the floor postoperatively.? Patient will be weightbearing as tolerated to the right lower extremity.? Posterior?hip?precautions. Abduction pillow in place.? DVT prophylaxis, pain medication, postoperative antibiotics and TXA.? Patient will work with PT/OT and discharge services for discharge planning.? Patients daughter understands agrees with current plan.? All questions answered.? ?patient will?follow-up in the office in 2 weeks.
[2024-02-11] MEDS: iron polysaccharide complex 150 mg Capsule PO (18:27)
[2024-02-11] MEDS: calcium carb-vit d 600mg/400unit 1 Tablet 1 EACH PO (18:27)
[2024-02-11] MEDS: sennosides-docusate Tablet 2 TAB PO (18:27)
[2024-02-11] MEDS: mupirocin oint 22 gm 1 APPLIC NASAL (18:35)
--- NOTE | 2024-02-11 18:58 | PC.NURSE ---
Spoke with Dr. Aguilar at this time about him wanting to discontinuing the one on one sitter for this patient. Patient has been in surgery most of the day and has just returned at about 1810. Patient is awake and pulling at her IV's and trying to get up out of bed even though she just had hip surgery today.
[2024-02-11] MEDS: OLANZapine 5 mg TABLET 2.5 MG PO (20:37)
[2024-02-11] MEDS: sertraline 50 mg Tablet 25 MG PO (20:37)
[2024-02-11] MEDS: tranexamic acid 1,000 MG/100 ML PREMIX 600 MG IV (22:54)
[2024-02-12] VITALS (9 sets, daily range): BP systolic 110–153; BP diastolic 56–73; PULSE 71–89; RESP 15–18; TEMP 36.7–38.6; O2SAT 91–93
[2024-02-12] MEDS: morphine IR 15 mg Tablet PO ×2 (04:54→19:03)
--- NOTE | 2024-02-12 04:55 | P.PN_ITS ---
Subjective 2 Subjective: Status post intervention Pleasant cooperative No overnight events continue supervision No signs of thromboembolic disease Expressive aphasia is chronic Oriented to herself Hypertensive Vitals/I&O/Wt Last Vital Signs Temp 98.7 F 02/11/24 13:38 Pulse 73 02/11/24 13:38 Resp 18 02/11/24 13:38 BP 171/79 02/11/24 13:38 Pulse Ox 94 02/11/24 13:38 O2 Del Method Room Air 02/11/24 13:38 02/11/24 02/11/24 02/11/24 06:59 14:59 22:59 Intake Total 100 / 100 Output Total 150 / 1400 500 / 500 Balance -150 / -1160 -400 / -400 Weight last 48 hrs Weight 70.534 kg Weight 72.575 kg Weight 72.575 kg Physical Exam 2 Narrative: Hypertensive Expressive aphasia Able to answer simple questions No other focal deficit Hypertensive abdomen soft no active chest pain S1, S2 Urinary Catheter Management: Guillaume: Cath Placed During This Visit: yes Reason for Continuing Indwelling Catheter: Perioperative Use in Selected Surgeries Urinary Catheter Date of Insertion: 02/10/24 Urinary Catheter Time of Insertion: 13:18 Data 02/11/24 04:20 02/11/24 04:20 Micro: Microbiology 02/10/24 13:16 Urine Culture - Preliminary Urine,Clean Catch Gram Negative Rods A&P Assessment and plan (1) Fracture of hip, right, closed: Qualifiers: Encounter type: initial encounter Qualified Code(s): S72.001A - Fracture of unspecified part of neck of right femur, initial encounter for closed fracture (2) Alzheimer's dementia: Qualifiers: Alzheimer's disease onset: late onset Dementia behavioral or psychological symptom: without behavioral, psychotic, or mood disturbance or anxiety Dementia severity: moderate Qualified Code(s): G30.1 - Alzheimer's disease with late onset; F02.B0 - Dementia in other diseases classified elsewhere, moderate, without behavioral disturbance, psychotic disturbance, mood disturbance, and anxiety (3) Expressive aphasia: Plan Unwitnessed fall Expressive aphasia Sundowning/delirium Discontinue supervision Continue antipsychotics and dementia medications for now DNR/DNI Discontinue Guillaume catheter Optimize antihypertensive regimen Opioids along bowel regimen SNF placement needed Attestations 2 Medical Necessity Statement*: Continue medical management Diagnoses Fracture of hip, right, closed S72.001A Encounter type: initial encounter Moderate late onset Alzheimer's dementia without behavioral disturbance, psychotic disturbance, mood disturbance, or anxiety G30.1; F02.B0 Alzheimer's disease onset: late onset Dementia behavioral or psychological symptom: without behavioral, psychotic, or mood disturbance or anxiety Dementia severity: moderate Expressive aphasia R47.01
[2024-02-12] MEDS: ceFAZolin 2,000 mg SDV 2000 MG IVP ×2 (06:13→14:10)
--- NOTE | 2024-02-12 06:23 | P.PN_ITS ---
Subjective 2 Subjective: Patient seen and examined this morning. She is resting comfortably in bed. She does have a sitter as she apparently was trying to get out of the bed multiple times last night due to confusion. She does have baseline dementia as well. Hip abduction pillow on in place and she has appropriate leg lengths today. She is getting blood this Morning. no family at bedside. Vitals/I&O/Wt Last Vital Signs Temp 98.6 F 02/12/24 04:00 Pulse 85 02/12/24 04:00 Resp 16 02/12/24 04:54 BP 129/68 02/12/24 04:00 Pulse Ox 91 02/12/24 04:00 O2 Del Method Room Air 02/12/24 04:00 02/11/24 02/11/24 02/12/24 14:59 22:59 06:59 Intake Total 100 / 100 605 / 705 100 / 805 Output Total 500 / 500 750 / 1250 100 / 1350 Balance -400 / -400 -145 / -545 0 / -545 Weight last 48 hrs Weight 163 lb 11.2 oz Weight 155 lb 8 oz Weight 160 lb Weight 160 lb Physical Exam 2 Narrative: Examination right hip dressings on in place clean dry and intact normal postoperative swelling at the right hip with mild tender to palpation she able to tolerate gentle logroll examination with minimal pain or discomfort she is able to follow simple command of saying yes to sensation intact light touch distally as well as she is able to wiggle her toes and she will plantarflex and dorsiflex her right ankle. Distal pulses are palpable toes are warm well- perfused. Compartments are soft compressible. Urinary Catheter Management: Guillaume: Cath Placed During This Visit: yes Reason for Continuing Indwelling Catheter: Other Urinary Catheter Date of Insertion: 02/10/24 Urinary Catheter Time of Insertion: 13:18 Data 02/11/24 04:20 02/11/24 04:20 Micro: Microbiology 02/10/24 13:16 Urine Culture - Preliminary Urine,Clean Catch Gram Negative Rods Xray Ortho: Radiologist's impression: Ordering Provider/Ordering MD: Flakito Negron Date of Service: 02/11/24 Procedure(s): XR hip RT 2-3V wo/w pel* [id number] Accession Number(s): [id number] Report Number: [id number] PROCEDURE INFORMATION: Exam: XR Right Hip Exam date and time: 02/11/2024 5:49 PM Age: 73 years old Clinical indication: Hip pain; Right hip; Patient HX: Post op RT hemiarthroplasty; Additional info: R hip nena TECHNIQUE: Imaging protocol: Radiologic exam of the right hip. Views: 1 view hip with pelvis when performed. COMPARISON: CR XR pelvis 1-2V* [id number] 02/10/2024 11:36 AM FINDINGS: Bones/joints: Total right hip arthroplasty in anatomic alignment. Mild osseous demineralization. No fracture or dislocation. Soft tissues: Postoperative changes in the subcutaneous tissues including subcutaneous gas and skin ghassan. XR/XR hip RT 2-3V wo/w pel* [id number] IMPRESSION: Total right hip arthroplasty in anatomic alignment. A&P Assessment and plan (1) Fracture of hip, right, closed: Qualifiers: Encounter type: initial encounter Qualified Code(s): S72.001A - Fracture of unspecified part of neck of right femur, initial encounter for closed fracture Plan Weight-bear as tolerated right lower extremity Resume regular diet Patient currently has sitter due to confusion Posterior hip precautions PT/OT Pain control X-rays reviewed AM labs reviewed DVT prophylaxis per primary Ice as needed for pain and swelling Dressings clean dry and intact can change as needed Orthopedics will continue to follow Attestations 2 Medical Necessity Statement*: Ongoing care status post right hip hemiarthroplasty Coding Level of Care Code Acute Code for Chg Fwd Diagnoses Fracture of hip, right, closed S72.001A Encounter type: initial encounter Time Spent (min) 10
[2024-02-12 06:43] LABS: Basophils % 0.1 %; Eosinophils # 0.1 10^3/uL (0.0-0.8); Eosinophils % 1.3 %; Hematocrit 34.4 % (36-47); Lymphocytes # 1.2 10^3/uL (0.8-4.8); Mean Corpuscular HGB Conc 33.4 g/dL (30-55); Mean Corpuscular Hemoglobin 31.7 pg (27-33); Mean Corpuscular Volume 94.8 fl (85-98); Monocytes # 0.7 10^3/uL (0.2-0.9); Monocytes % 7.1 %; Neutrophils # 8.04 10^3/uL (1.8-7.7); Neutrophils % 79.1 %; Nucleated Red Blood Cells % 0 %; Platelet Count 91 10^3/cmm (157-399); Positive C 1; Red Blood Count 3.63 10^6/uL (3.85-5.65); Red Cell Distribution Width 11.9 % (12.1-15.1); White Blood Count 10.16 10^3/uL (3.29-11.43)
[2024-02-12 06:56] LABS: Blood Urea Nitrogen 24 mg/dL (8-23); Calcium 8.3 mg/dL (8.5-10.5); Carbon Dioxide 25 mmol/L (22-29); Chloride 103 mmol/L (98-107); Creatinine Clr Calc Pharmacy 62.6178; Glucose 107 mg/dL (65-115); Osmolality Calculated 287 mOsm/kg (285-295); Sodium 136 mmol/L (136-145)
[2024-02-12 06:57] LABS: Anion Gap 11.8 (5-19); Potassium 3.8 mmol/L (3.5-5.1)
[2024-02-12] MEDS: metoprolol tartrate 25 mg Tablet PO ×2 (08:28→19:50)
[2024-02-12] MEDS: multivitamin therapeutic Tablet 1 TAB PO (08:28)
[2024-02-12] MEDS: calcium carb-vit d 600mg/400unit 1 Tablet 1 EACH PO (08:28)
[2024-02-12] MEDS: thiamine 100 mg Tablet PO (08:29)
[2024-02-12] MEDS: iron polysaccharide complex 150 mg Capsule PO (08:29)
[2024-02-12] MEDS: sennosides-docusate Tablet 2 TAB PO (08:29)
--- NOTE | 2024-02-12 11:14 | PC.OT ---
OT EVALUATION ATTEMPTED TWICE THIS A.M. PATIENT IS SLEEPING SOUNDLY ON BOTH ATTEMPTS. DAUGHTER IS PRESENT AND THERAPIST GATHERS PLOF FROM HER REGARDING PATIENT ADL STATUS. POSTERIOR HIP PX EXPLAINED VERBAL/HANDOUT TO DAUGHTER. OT EVALUATION WILL BE ATTEMPTED ON WEDNESDAY WHEN OT RETURNS TO HOSPITAL.
[2024-02-12] MEDS: enoxaparin 40 mg/0.4 mL Syringe SUBCUT (14:10)
[2024-02-12] MEDS: acetaminophen 500 mg Tablet PO (16:00)
--- NOTE | 2024-02-12 16:15 | XRR_ITS ---
PROCEDURE INFORMATION: Exam: XR Chest Exam date and time: 02/12/2024 9:27 PM Age: 73 years old Clinical indication: Patient HX: Fever; Post op RT hemiarthroplasty x 2 days TECHNIQUE: Imaging protocol: Radiologic exam of the chest. Views: 1 view. COMPARISON: CT angio chest PE protcl [id number] 02/11/2024 1:03 AM FINDINGS: Lungs: Mild interstitial prominence, likely chronic. No consolidation. Pleural spaces: No pleural effusion or pneumothorax. Heart/Mediastinum: Heart size is within normal limits. Vasculature: Atherosclerotic calcifications of the aorta are present. No aneurysm is identified. Bones/joints: No acute osseous abnormalities are seen. XR/XR chest 1V portable [id number] IMPRESSION: No acute cardiopulmonary disease.
--- NOTE | 2024-02-12 17:09 | PM.MISC ---
Miscellaneous Note Note: Postop fever 101.5. Urine culture growing E. coli pansensitive resistant to ampicillin. Will place patient on IV Unasyn. Remove Guillaume catheter today. Discussed with daughter at bedside. Will check checks x-ray.
[2024-02-12] MEDS: ampicillin-sulbactam 3 GM in sodium chloride 0.9% (plus) 50 ML IV ×2 (18:48→23:50)
[2024-02-12] MEDS: sertraline 50 mg Tablet 25 MG PO (19:49)
[2024-02-12] MEDS: OLANZapine 5 mg TABLET 2.5 MG PO (19:50)
[2024-02-13] VITALS (12 sets, daily range): BP systolic 107–174; BP diastolic 60–86; PULSE 61–98; RESP 15–20; TEMP 36.6–37.6; O2SAT 92–97
[2024-02-13] MEDS: morphine IR 15 mg Tablet PO ×4 (00:38→20:24)
[2024-02-13 05:45] LABS: Basophils % 0.1 %; Eosinophils # 0.3 10^3/uL (0.0-0.8); Eosinophils % 3.3 %; Hematocrit 34.2 % (36-47); Lymphocytes # 1.3 10^3/uL (0.8-4.8); Lymphocytes % 14.2 %; Mean Corpuscular HGB Conc 32.2 g/dL (30-55); Mean Corpuscular Hemoglobin 30.5 pg (27-33); Mean Corpuscular Volume 94.7 fl (85-98); Mean Platelet Volume 10.1 fL (7.4-10.4); Monocytes # 0.7 10^3/uL (0.2-0.9); Monocytes % 7.2 %; Neutrophils # 7.08 10^3/uL (1.8-7.7); Neutrophils % 74.9 %; Nucleated Red Blood Cells % 0 %; Platelet Count 140 10^3/cmm (157-399); Red Blood Count 3.61 10^6/uL (3.85-5.65); Red Cell Distribution Width 11.6 % (12.1-15.1); White Blood Count 9.45 10^3/uL (3.29-11.43)
[2024-02-13] MEDS: ampicillin-sulbactam 3 GM in sodium chloride 0.9% (plus) 50 ML IV (06:06)
[2024-02-13 06:12] LABS: Anion Gap 11.6 (5-19); Blood Urea Nitrogen 26 mg/dL (8-23); Calcium 8.4 mg/dL (8.5-10.5); Carbon Dioxide 27 mmol/L (22-29); Chloride 106 mmol/L (98-107); Glucose 115 mg/dL (65-115); Osmolality Calculated 298 mOsm/kg (285-295); Potassium 3.6 mmol/L (3.5-5.1); Sodium 141 mmol/L (136-145)
[2024-02-13 06:13] LABS: Creatinine Clr Calc Pharmacy 62.5177
[2024-02-13] MEDS: iron polysaccharide complex 150 mg Capsule PO ×2 (07:55→17:23)
[2024-02-13] MEDS: calcium carb-vit d 600mg/400unit 1 Tablet 1 EACH PO ×2 (08:06→17:22)
[2024-02-13] MEDS: sennosides-docusate Tablet 2 TAB PO ×2 (08:06→17:21)
[2024-02-13] MEDS: multivitamin therapeutic Tablet 1 TAB PO (08:06)
[2024-02-13] MEDS: thiamine 100 mg Tablet PO (08:07)
[2024-02-13] MEDS: metoprolol tartrate 25 mg Tablet PO ×2 (08:07→20:17)
[2024-02-13] MEDS: mupirocin oint 22 gm 1 APPLIC NASAL ×2 (08:34→17:23)
[2024-02-13] MEDS: cefTRIAXone 1,000 mg SDV 1000 MG IVP (09:16)
--- NOTE | 2024-02-13 10:27 | P.PN_ITS ---
Subjective 2 Subjective: Patient is pleasant during my evaluation Able to work with PT Oriented to herself Able to answer questions appropriately She does have expressive aphasia which sometimes could be interpreted as confusion Vitals/I&O/Wt Last Vital Signs Temp 97.8 F 02/13/24 08:00 Pulse 98 02/13/24 09:21 Resp 18 02/13/24 09:21 BP 146/71 02/13/24 08:00 Pulse Ox 94 02/13/24 09:21 O2 Del Method Room Air 02/13/24 09:21 02/12/24 02/13/24 02/13/24 22:59 06:59 14:59 Intake Total 275 / 650 100 / 750 360 / 360 Output Total 125 / 375 100 / 475 200 / 200 Balance 150 / 275 0 / 275 160 / 160 Weight last 48 hrs Weight 73.992 kg Weight 74.253 kg Physical Exam 2 Narrative: No new focal deficit Pleasant cooperative Euvolemic Hemodynamically stable Currently on room air Working with PT S1, S2 Abdomen soft Urinary Catheter Management: Guillaume: Cath Placed During This Visit: yes, but has since been removed by the nurse Reason for Continuing Indwelling Catheter: Accurate Measurement of Urinary Output in Critically Ill Patients Urinary Catheter Date of Insertion: 02/10/24 Urinary Catheter Time of Insertion: 13:18 Date Urinary Catheter Removed: 02/13/24 Time Urinary Catheter Discontinued: 03:00 Data 02/13/24 04:37 02/13/24 04:37 Micro: Microbiology 02/10/24 13:16 Urine Culture - Final Urine,Clean Catch Escherichia coli A&P Assessment and plan (1) Fracture of hip, right, closed: Qualifiers: Encounter type: initial encounter Qualified Code(s): S72.001A - Fracture of unspecified part of neck of right femur, initial encounter for closed fracture (2) Alzheimer's dementia: Qualifiers: Alzheimer's disease onset: late onset Dementia severity: moderate D ementia behavioral or psychological symptom: without behavioral, psychotic, or mood disturbance or anxiety Qualified Code(s): G30.1 - Alzheimer's disease with late onset; F02.B0 - Dementia in other diseases classified elsewhere, moderate, without behavioral disturbance, psychotic disturbance, mood disturbance, and anxiety (3) Expressive aphasia: Plan Patient experienced owning delirium on Wednesday required 1 dose of antipsychotic this morning she was much pleasant and cooperative I will request discontinuation of supervision Patient is verbally redirectable Added ceftriaxone for UTI Discontinue Unasyn Awaiting SNF placement Attestations 2 Medical Necessity Statement*: SNF placement is awaited Diagnoses Fracture of hip, right, closed S72.001A Encounter type: initial encounter Moderate late onset Alzheimer's dementia without behavioral disturbance, psychotic disturbance, mood disturbance, or anxiety G30.1; F02.B0 Alzheimer's disease onset: late onset Dementia severity: moderate Dementia behavioral or psychological symptom: without behavioral, psychotic, or mood disturbance or anxiety Expressive aphasia R47.01
--- NOTE | 2024-02-13 15:14 | P.PN_ITS ---
Subjective 2 Subjective: Patient seen and examined this morning with her daughter at bedside. Patient's confusion has gotten better since postoperatively and back to more of her baseline dementia per the daughter. She has gotten up with therapy. Will continue work with therapy planning on rehab facility at discharge. No acute events overnight Vitals/I&O/Wt Last Vital Signs Temp 99.7 F H 02/13/24 11:46 Pulse 84 02/13/24 11:46 Resp 17 02/13/24 11:46 BP 170/75 02/13/24 11:46 Pulse Ox 92 02/13/24 11:46 O2 Del Method Room Air 02/13/24 11:46 02/13/24 02/13/24 02/13/24 06:59 14:59 22:59 Intake Total 100 / 750 840 / 840 Output Total 100 / 475 200 / 200 Balance 0 / 275 640 / 640 Weight last 48 hrs Weight 163 lb 2 oz Weight 163 lb 11.2 oz Physical Exam 2 Narrative: Examination right hip dressings, these are not taken down only small spot drainage appreciated per the nursing staff, normal postoperative swelling at the right hip with mild tender to palpation she able to tolerate gentle logroll examination with minimal pain or discomfort she is able to follow simple command of saying yes to sensation intact light touch distally as well as she is able to wiggle her toes and she will plantarflex and dorsiflex her right ankle. Distal pulses are palpable toes are warm well-perfused. Compartments are soft compressible. Urinary Catheter Management: Guillaume: Cath Placed During This Visit: yes, but has since been removed by the nurse Reason for Continuing Indwelling Catheter: Accurate Measurement of Urinary Output in Critically Ill Patients Urinary Catheter Date of Insertion: 02/10/24 Urinary Catheter Time of Insertion: 13:18 Date Urinary Catheter Removed: 02/13/24 Time Urinary Catheter Discontinued: 03:00 Data 02/13/24 04:37 02/13/24 04:37 Micro: Microbiology 02/10/24 13:16 Urine Culture - Final Urine,Clean Catch Escherichia coli A&P Assessment and plan (1) Fracture of hip, right, closed: Qualifiers: Encounter type: initial encounter Qualified Code(s): S72.001A - Fracture of unspecified part of neck of right femur, initial encounter for closed fracture Plan Weight-bear as tolerated right lower extremity Resume regular diet Patient currently has sitter due to confusion Posterior hip precautions PT/OT Pain control X-rays reviewed AM labs reviewed DVT prophylaxis per primary Ice as needed for pain and swelling Dressings clean dry and intact can change as needed Patient stable for discharge from orthopedic standpoint this point time orthopedic surgery team will sign off and follow peripherally if there is any question pertaining patient care for for contact orthopedics on-call. Orthopedic discharge instructions well as medications DVT prophylaxis in chart patient follow-up in orthopedics in 2 weeks. Patient's daughter understands and agrees with current plan. All questions answered. Thank you for allow me to partake in the care of this patient. Attestations 2 Medical Necessity Statement*: Status post right hip hemiarthroplasty Coding Level of Care Code Acute Code for [facility] Diagnoses Fracture of hip, right, closed S72.001A Encounter type: initial encounter Time Spent (min) 20
[2024-02-13] MEDS: enoxaparin 40 mg/0.4 mL Syringe SUBCUT (15:21)
[2024-02-13] MEDS: OLANZapine 5 mg TABLET 2.5 MG PO (20:15)
[2024-02-13] MEDS: sertraline 50 mg Tablet 25 MG PO (20:16)
[2024-02-13] MEDS: acetaminophen 500 mg Tablet PO (20:17)
--- NOTE | 2024-02-14 02:42 | PC.NURSE ---
pt attempted to use BSC x2 without output. Bladderscan showed 450 ml, Dr. Cheema notified and order to place [place] back in. 500 ml return.pt is confused,
[2024-02-14 03:33] VITALS: BP 172/68; PULSE 74; RESP 20; TEMP 36.9; O2SAT 96
[2024-02-14 04:07] LABS: Basophils % 0.3 %; Eosinophils # 0.5 10^3/uL (0.0-0.8); Eosinophils % 6.9 %; Hematocrit 34.5 % (36-47); Lymphocytes # 1.3 10^3/uL (0.8-4.8); Lymphocytes % 17.1 %; Mean Corpuscular HGB Conc 32.2 g/dL (30-55); Mean Corpuscular Hemoglobin 30.8 pg (27-33); Mean Corpuscular Volume 95.8 fl (85-98); Mean Platelet Volume 9.6 fL (7.4-10.4); Monocytes # 0.6 10^3/uL (0.2-0.9); Monocytes % 8.2 %; Neutrophils # 5.26 10^3/uL (1.8-7.7); Neutrophils % 67.2 %; Nucleated Red Blood Cells % 0 %; Platelet Count 161 10^3/cmm (157-399); Red Cell Distribution Width 11.6 % (12.1-15.1); White Blood Count 7.82 10^3/uL (3.29-11.43)
[2024-02-14 04:25] LABS: Anion Gap 9.3 (5-19); Blood Urea Nitrogen 24 mg/dL (8-23); Calcium 9.1 mg/dL (8.5-10.5); Carbon Dioxide 30 mmol/L (22-29); Chloride 103 mmol/L (98-107); Creatinine Clr Calc Pharmacy 61.4844; Glucose 113 mg/dL (65-115); Osmolality Calculated 293 mOsm/kg (285-295); Potassium 3.3 mmol/L (3.5-5.1); Sodium 139 mmol/L (136-145)
[2024-02-14 07:06] VITALS: BP 165/73; PULSE 70; RESP 17; TEMP 37.1; O2SAT 94
[2024-02-14] MEDS: metoprolol tartrate 25 mg Tablet PO (08:18)
[2024-02-14] MEDS: multivitamin therapeutic Tablet 1 TAB PO (08:18)
[2024-02-14] MEDS: calcium carb-vit d 600mg/400unit 1 Tablet 1 EACH PO (08:18)
[2024-02-14] MEDS: iron polysaccharide complex 150 mg Capsule PO (08:18)
[2024-02-14] MEDS: sennosides-docusate Tablet 2 TAB PO (08:18)
[2024-02-14] MEDS: thiamine 100 mg Tablet PO (08:18)
[2024-02-14] MEDS: cefTRIAXone 1,000 mg SDV 1000 MG IVP (08:18)
[2024-02-14] MEDS: mupirocin oint 22 gm 1 APPLIC NASAL (08:19)
[2024-02-14 08:49] VITALS: PULSE 96; RESP 16; O2SAT 95
--- NOTE | 2024-02-14 10:00 | PC.SOCIAL ---
IMM Update pg 2 of IMM Updated and reviewed w/ patients daughter. Copy provided. Copy dated, initialed and placed in chart.
[2024-02-14 11:14] VITALS: BP 152/74; PULSE 67; RESP 17; TEMP 36.8; O2SAT 97
--- NOTE | 2024-02-14 11:31 | PM.DCS ---
Discharge Providers Date of Admission: 02/10/24 13:24 Date of Discharge: February 14, 2024 Attending Provider at Admission: Mk Aguilar MD Attending Provider at Discharge: Mk Aguilar MD Primary Care Provider: Sonny Robbins DO Diagnoses at Discharge Discharge Diagnosis (1) Fracture of hip, right, closed: Status: Acute Qualifiers: Encounter type: initial encounter Qualified Code(s): S72.001A - Fracture of unspecified part of neck of right femur, initial encounter for closed fracture Reason for Visit Reason for Visit: fall, hip pain Hospital Course Hospital Course 73-year female who present to the hospital after a fall, she was diagnosed with hip fracture, status post intervention right hip hemiarthroplasty by Dr. 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 She remained hemodynamically stable for her hypertension antihypertensive regimen will be optimized at discharge. Please note, daughter is stating that they were never told about any stroke however CT scan is evident with such changes, most likely she suffered from a stroke that caused expressive aphasia, patient is retaining urine secondary to polypharmacy and antipsychotics. We will remove her Guillaume catheter at discharge. At the correction she can get straight cath in case of urinary tension. Please note during hospitalization she was put on ceftriaxone for UTI. I will continue with cefpodoxime for next 5 days. Patient is DNR/DNI Physical Exam Narrative: Patient is verbally directable Oriented to herself Expressive aphasia Hypertensive Currently room air Patient is wanting to remove her IV line, Akathisia with agitation Urinary Catheter Management: Guillaume: Cath Placed During This Visit: yes, but has since been removed by the nurse Reason for Continuing Indwelling Catheter: Acute Urinary Retention or Obstruction Urinary Catheter Date of Insertion: 02/14/24 Urinary Catheter Time of Insertion: 02:47 Date Urinary Catheter Removed: 02/13/24 Time Urinary Catheter Discontinued: 03:00 Discharge Data Studies Completed and Pending Completed Studies During Hospitalization Category Date Time Status CT head wo con* [id number] Stat Cat Scan 02/10/24 13:35 Completed CTA chest [CT angio chest PE protcl [id number]] Routine Cat Scan 02/10/24 16:52 Completed XR chest 1V portable [id number] Routine Exams 02/12/24 16:15 Completed XR femur RT min 2V* [id number] Stat Exams 02/10/24 10:51 Completed XR hip RT 2-3V wo/w pel* [id number] Routine Exams 02/11/24 17:36 Completed XR pelvis 1-2V* [id number] Stat Exams 02/10/24 10:51 Completed US venous duplex lower extremity bilat [CV venous Ultrasound 02/10/24 16:51 [place] [id number]] Routine Pending at discharge Category Date Time Status COVID [SARS Covid-2 Antigen] Routine Lab 02/14/24 10:55 Received Urinalysis and Microscopic Stat Lab 02/14/24 02:48 Ordered Urine Culture Stat Lab 02/14/24 02:48 Ordered Radiology Impressions Femur X-Ray 02/10/24 10:51 Impression: Right femoral neck fracture. Pelvis X-Ray 02/10/24 10:51 Impression: Right femoral neck fracture. Head CT 02/10/24 13:35 IMPRESSION: 1. No acute intracranial hemorrhage or edema. 2. Moderate atrophy and small vessel disease. 3. Prior LEFT temporal lobe infarct with encephalomalacia. Venous Duplex 02/10/24 16:51 IMPRESSION: No sonographic evidence of deep venous thrombosis. Chest CTA 02/10/24 16:52 IMPRESSION: No pulmonary embolus. Hip/Pelvis X-Ray 02/11/24 17:36 IMPRESSION: Total right hip arthroplasty in anatomic alignment. Chest X-Ray 02/12/24 16:15 IMPRESSION: No acute cardiopulmonary disease. Laboratory Results WBC 7.82 10^3/uL (3.29-11.43) 02/14/24 03:57 RBC 3.60 10^6/uL (3.85-5.65) L 02/14/24 03:57 Hgb 11.10 g/dL (11.27-16.99) L 02/14/24 03:57 Hct 34.5 % (36-47) L 02/14/24 03:57 MCV 95.8 fl (85-98) 02/14/24 03:57 MCH 30.8 pg (27-33) 02/14/24 03:57 MCHC 32.2 g/dL (30-55) 02/14/24 03:57 RDW 11.6 % (12.1-15.1) L 02/14/24 03:57 Plt Count 161 10^3/cmm (157-399) 02/14/24 03:57 MPV 9.6 fL (7.4-10.4) 02/14/24 03:57 Neut % (Auto) 67.2 % 02/14/24 03:57 Lymph % (Auto) 17.1 % 02/14/24 03:57 [place] % (Auto) 8.2 % 02/14/24 03:57 Eos % (Auto) 6.9 % 02/14/24 03:57 Baso % (Auto) 0.3 % 02/14/24 03:57 Neut # (Auto) 5.26 10^3/uL (1.8-7.7) 02/14/24 03:57 Lymph # (Auto) 1.3 10^3/uL (0.8-4.8) 02/14/24 03:57 [place] # (Auto) 0.6 10^3/uL (0.2-0.9) 02/14/24 03:57 Eos # (Auto) 0.5 10^3/uL (0.0-0.8) 02/14/24 03:57 Baso # (Auto) 0.0 10^3/uL (0.0-0.1) 02/14/24 03:57 Nucleated RBC % (auto) 0 % 02/14/24 03:57 Nucleated RBCs # 0.0 /100WBC 02/14/24 03:57 D-Dimer > 20.00 ug/mLFEU (0-0.59) H 02/10/24 13:43 Sodium 139 mmol/L (136-145) 02/14/24 03:57 Potassium 3.3 mmol/L (3.5-5.1) L 02/14/24 03:57 Chloride 103 mmol/L (98-107) 02/14/24 03:57 Carbon Dioxide 30 mmol/L (22-29) H 02/14/24 03:57 Anion Gap 9.3 (5-19) 02/14/24 03:57 BUN 24 mg/dL (8-23) H 02/14/24 03:57 Creatinine 0.5 mg/dL (0.5-0.9) 02/14/24 03:57 GFR Calculation Not Reportable 02/14/24 03:57 Glucose 113 mg/dL (65-115) 02/14/24 03:57 Calculated Osmolality 293 mOsm/kg (285-295) 02/14/24 03:57 Calcium 9.1 mg/dL (8.5-10.5) 02/14/24 03:57 Magnesium 2.0 mg/dL (1.7-2.3) 02/11/24 04:20 Total Bilirubin 0.6 mg/dL (0.15-1.2) 02/10/24 13:43 AST 23 U/L (0-32) 02/10/24 13:43 ALT 21 U/L (0-33) 02/10/24 13:43 Alkaline Phosphatase 82 U/L (35-105) 02/10/24 13:43 Creatine Kinase 113 U/L (26-192) 02/10/24 13:43 Total Protein 7.0 g/dL (6.6-8.7) 02/10/24 13:43 Albumin 4.1 g/dL (3.5-5.2) 02/10/24 13:43 Globulin 2.9 g/dL (1.3-4.6) 02/10/24 13:43 Vitamin B12 1023 pg/mL (232-1245) 02/10/24 13:43 TSH 1.19 uIU/mL (0.27-4.20) 02/10/24 13:43 Urine Color Yellow (Yellow) 02/10/24 13:16 Urine Appearance Cloudy (CLEAR) A 02/10/24 13:16 Urine pH 7.5 (5-7) 02/10/24 13:16 Ur Specific [place] 1.012 (1.005-1.030) 02/10/24 13:16 Urine Protein Trace (Negative) A 02/10/24 13:16 Urine Glucose (UA) Negative (Normal) 02/10/24 13:16 Urine Ketones 1+ (Negative) H 02/10/24 13:16 Urine Blood Negative (Negative) 02/10/24 13:16 Urine Nitrate Positive (Negative) A 02/10/24 13:16 Urine Bilirubin Negative (Negative) 02/10/24 13:16 Urine Urobilinogen 1.0 mg/dL (Negative) 02/10/24 13:16 Ur Leukocyte Esterase Negative (Negative) 02/10/24 13:16 Urine RBC 0-2 /hpf (0-2) 02/10/24 13:16 Urine WBC 0-5 /hpf (0-5) 02/10/24 13:16 Ur Squamous Epith Cells 0-5 /hpf (0-5) 02/10/24 13:16 Amorphous Sediment Not Reportable 02/10/24 13:16 Urine Bacteria Exceeds /hpf (NONE) 02/10/24 13:16 Hyaline Casts 2.46 /lpf 02/10/24 13:16 Blood Type A Negative 02/11/24 04:20 Rho(D) Type Rh negative 02/11/24 04:20 Antibody Screen Negative 02/11/24 04:20 Vitals Last Vital Signs Temp 98.2 F 02/14/24 11:14 Pulse 67 02/14/24 11:14 Resp 17 02/14/24 11:14 BP 152/74 02/14/24 11:14 Pulse Ox 97 02/14/24 11:14 O2 Del Method Room Air 02/14/24 11:14 Discharge Plan Discharge Patient Disposition: Xfer SNF Condition: Stable Prescriptions: New oxycodone 5 mg tablet 5 mg PO Q6H PRN (Reason: pain postop) 7 Days Qty: 28 0RF oxycodone 5 mg tablet 5 mg PO TID PRN (Reason: pain) Qty: 14 0RF metoprolol tartrate 25 mg Tablet 25 mg PO BID@0900,2100 Qty: 60 0RF calcium carbonate-vitamin D3 [Calcium 600 + D(3)] 600 mg-10 mcg (400 unit) tablet 1 tab PO DAILY 30 Days Qty: 30 0RF lisinopril 10 mg tablet 10 mg PO DAILY Qty: 60 1RF Eliquis 2.5 mg tablet 2.5 mg PO BID Qty: 60 0RF sennosides-docusate sodium [Stool Softener-Laxative] 8.6-50 mg Tablet 2 tab PO BID Qty: 10 0RF ondansetron 4 mg tablet,disintegrating 4 mg PO Q8H 3 Days Qty: 9 0RF cefpodoxime 200 mg tablet 200 mg PO BID Qty: 10 0RF Rx Instructions: must administer with a meal/food tamsulosin 0.4 mg capsule 0.4 mg PO DAILY Qty: 30 0RF Continued acetaminophen 325 mg Tablet 650 mg PO QID PRN (Reason: Pain) olanzapine 2.5 mg tablet 2.5 mg PO DAILY sertraline 25 mg tablet 25 mg PO DAILY memantine 5 mg tablet 5 mg PO DAILY melatonin 10 mg Capsule 10 mg PO DAILY Discontinued trazodone 50 mg tablet 50 mg PO DAILY Qty: 30 11RF lorazepam 0.5 mg tablet 0.5 mg PO BID PRN (Reason: anxiety) Qty: 60 5RF Discharge Orders: Discharge Order (Routine); Ordered 02/14/24 Ordered By: Mk Aguilar Referrals: [facility] [Outside] Sonny Robbins DO [Primary Care Provider] - Flakito Negron DO [Physician] - Discharge Diet: Regular Discharge Activity: Limit activity as instructed and Use walker/crutches as instructed Patient Instructions: Acute Wound Care (DC), Opioid Safety, Post Anesthesia Care Activity Restrictions/Additional Instructions: Orthopedic discharge instructions: Patient may weight-bear as tolerated to the operative lower extremity Posterior hip precautions (avoid excess excessive hip flexion past 90 degrees and internal rotation) Take DVT prophylaxis (blood thinner as prescribed ) Take pain medication as prescribed Take antinausea medication as needed Supplement with Citracal vitamin D for bone health and healing Ice as needed for pain and swelling Leave Silverlon bandage dressing on for 7 days after that may remove, rinse incision with warm soapy water/shower pat dry keep clean dry and intact and redress with a clean dry dressing. No baths or soap Follow-up in the orthopedic office in 2 weeks from date of surgery Contact the office for any questions or concerns per (fevers, increased drainage or redness around the incision site etc.) Discharge Attestations Time Spent in Discharge Care*: greater than 30 min Quality Metrics Clinical Quality Measures [ No reported AMI, CVA or VTE this stay] Coding Level of Care Code Acute Code for Chg Fwd Diagnoses Fracture of hip, right, closed S72.001A Encounter type: initial encounter
[2024-02-14 11:45] LABS: SARS Covid-2 Antigen Negative (Negative)
[2024-02-14] MEDS: acetaminophen 500 mg Tablet PO (12:08)
[2024-02-14] MEDS: potassium chloride oral liq 20 mEq/15 mL UDC 40 MEQ PO (12:08)
[2024-02-14 13:13] VITALS: BP 152/74; PULSE 67; RESP 17; TEMP 36.8; O2SAT 97
--- NOTE | 2024-02-14 13:15 | PC.NURSE ---
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
== END 2024-02-14 13:17 | disposition skilled nursing facility (03) | DRG 522 ==
LOC: ER 12:42 → MEDSURG 13:25
PROVIDERS: Student in an Organized Health Care Education/Training Program; Admitting Provider Internal Medicine; Emergency Provider Emergency Medicine; PCP Family Medicine; Visit Provider Internal Medicine
PROC: 0SRR0J9 Replacement of Right Hip Joint, Femoral Surface with Synthetic Substitute, Cemented, Open Approach (ICD-10-PCS; CPT 27125; principal; 2024-02-11 13:50)
DX: S72.001A Fracture of unspecified part of neck of right femur, initial encounter for closed fracture (principal); F05 Delirium due to known physiological condition; N39.0 Urinary tract infection, site not specified; F03.90 Unspecified dementia, unspecified severity, without behavioral disturbance, psychotic disturbance, mood disturbance, and anxiety; G30.1 Alzheimer's disease with late onset; F02.80 Dementia in other diseases classified elsewhere, unspecified severity, without behavioral disturbance, psychotic disturbance, mood disturbance, and anxiety; R33.0 Drug induced retention of urine; T43.505A Adverse effect of unspecified antipsychotics and neuroleptics, initial encounter; B96.20 Unspecified Escherichia coli [E. coli] as the cause of diseases classified elsewhere; Z66 Do not resuscitate; G47.00 Insomnia, unspecified; F41.8 Other specified anxiety disorders; I69.920 Aphasia following unspecified cerebrovascular disease; W19.XXXA Unspecified fall, initial encounter
CPT/HCPCS: 36415; 51702; 70450; 71045; 71275; 72170; 73502; 73552; 80048; 80053; 81001; 82550; 82607; 83735; 84443; 85025; 85378; 86850; 86900; 87077; 87086; 87186; 87426; 93970; 96372; 96374; 97116; 97162; 97165; 97530; 99285; C1713; C1776; J0131; J0295; J0360; J0690; J0696; J1100; J1650; J1885; J2270; J2371; J2405; J2704; J3010; J3370; J3490; J7030

== ENCOUNTER → 2024-03-07 14:33 | Outpatient (BNVA) | payer MEDICARE, OTHER, SELFPAY | PROVIDERS: PCP Family Medicine; Visit Provider Physician Assistant | DX: M25.551 Pain in right hip; S72.001D Fracture of unspecified part of neck of right femur, subsequent encounter for closed fracture with routine healing; X58.XXXD Exposure to other specified factors, subsequent encounter; Z96.641 Presence of right artificial hip joint | CPT/HCPCS: 73502; 99024 ==

== ENCOUNTER → 2024-04-27 14:54 | Outpatient (BNVA) | payer MEDICARE, OTHER, SELFPAY | PROVIDERS: PCP Family Medicine; Visit Provider Physician Assistant | DX: Z96.641 Presence of right artificial hip joint (principal) | CPT/HCPCS: 73502; 99024 ==

== ENCOUNTER → 2024-09-05 14:54 | Outpatient (BNVA) | payer MEDICARE, OTHER, SELFPAY | PROVIDERS: PCP Family Medicine; Visit Provider Physician Assistant | DX: Z96.641 Presence of right artificial hip joint (principal) | CPT/HCPCS: 73502; 99213 ==

== ENCOUNTER → 2025-02-13 14:10 | Outpatient (BNVA) | payer MEDICARE, OTHER, SELFPAY | PROVIDERS: PCP Family Medicine; Visit Provider Physician Assistant | DX: Z47.89 Encounter for other orthopedic aftercare (principal); Z96.649 Presence of unspecified artificial hip joint | CPT/HCPCS: 73502; 99213 ==

== ENCOUNTER → 2025-04-04 08:44 | Outpatient (BNVA) | payer MEDICARE, OTHER, SELFPAY | PROVIDERS: PCP Family Medicine; Visit Provider Specialist | DX: G30.9 Alzheimer's disease, unspecified (principal); F02.818 Dementia in other diseases classified elsewhere, unspecified severity, with other behavioral disturbance; R47.01 Aphasia | CPT/HCPCS: 99205 ==